=== PATIENT | female | born 1985 | race Caucasian/White ===

== ENCOUNTER 2018-06-26 05:35 | Emergency (ER) | payer SELFPAY ==
[~2018-06-26] VITALS: Ht 170.2 cm; Wt 79.4 kg
--- NOTE | 2018-06-26 05:38 | NUR ---
PT AMBULATED TO ER BED 9
--- NOTE | 2018-06-26 05:40 | NUR ---
32 Y/O F PRESENTED TO ED WITH SORE THROAT X2 WEEKS. PER PT, " HAD A SORE THROAT FOR 2 WEEKS. WHEN I SWALLOW IT HURTS AND I FEEL LIKE THERE IS SOMETHING STUCK THERE. I TOOK SOME OF MY GRANDMA'S ANTIBIOTICS YESTERDAY." L MANDIBULAR LYMPH SWOLLEN AND TENDER TO TOUCH. 5/10 PAIN, SORENESS AND ITCHING TO THROAT. NO REDNESS OR EXUDATE NOTED TO THROAT. BED IN LOWEST POSTION. ERMD NOTIFIED. WILL CONTINUE TO MONITOR.
[2018-06-26 05:41] VITALS: BP 119/71
--- NOTE | 2018-06-26 05:49 | NUR ---
Dr. Joseph evaluating patient at bedside.
[2018-06-26] MEDS ORDERED: KETOROLAC 60 MG/2 ML VIAL IM ONE (05:55)
[2018-06-26] MEDS ORDERED: AMOXICILLIN 500 MG CAP PO ONE (06:00)
[2018-06-26 06:15] VITALS: BP 119/71
--- NOTE | 2018-06-26 06:15 | NUR ---
Patient discharged with v/s stable. Written and verbal after care instructions given and explained. Patient alert, oriented and verbalized understanding of instructions. Ambulatory with steady gait. All questions addressed prior to discharge. ID band removed. Patient advised to follow up with PMD. Rx of MOTRIN AND AMOXICILLIN given. Patient educated on indication of medication including possible reaction and side effects. Opportunity to ask questions provided and answered.
== END 2018-06-26 06:15 | disposition home or self-care (01) ==
LOC: MED 05:35
DX: J02.8 Acute pharyngitis due to other specified organisms (principal); B96.89 Other specified bacterial agents as the cause of diseases classified elsewhere
CPT/HCPCS: 96372; 99283; J1885

== ENCOUNTER 2020-12-24 01:08 | Emergency (ER) | payer SELFPAY ==
[~2020-12-24] VITALS: Ht 177.8 cm; Wt 72.1 kg
[2020-12-24 01:13] VITALS: BP 111/71
[2020-12-24 04:35] VITALS: BP 111/71
== END 2020-12-24 04:35 | disposition home or self-care (01) ==
LOC: MED 01:08
DX: M25.561 Pain in right knee (principal); M25.562 Pain in left knee
CPT/HCPCS: 73501; 73562; 99284

== ENCOUNTER 2021-01-17 00:37 | Emergency (ER) | payer SELFPAY ==
[~2021-01-17] VITALS: Ht 172.7 cm; Wt 70.8 kg
[2021-01-17 00:55] VITALS: BP 102/62
[2021-01-17 01:15] VITALS: BP 91/53
[2021-01-17] MEDS ORDERED: MEDR10TA PO (01:31)
[2021-01-17] MEDS ORDERED: CIPR500T4 PO (01:31)
== END 2021-01-17 01:35 | disposition home or self-care (01) ==
LOC: MED 00:37
DX: N39.0 Urinary tract infection, site not specified (principal); N93.8 Other specified abnormal uterine and vaginal bleeding
CPT/HCPCS: 81002; 81025; 99283